=== PATIENT | male | born 1950 ===

== ENCOUNTER → 2021-11-29 10:47 | Outpatient (BNVA) | payer MEDICARE, SELFPAY | PROVIDERS: Referring Provider Family Medicine; Visit Provider Surgery | DX: Z12.11 Encounter for screening for malignant neoplasm of colon (principal) ==

== ENCOUNTER 2021-12-28 05:51 | Day surgery (SDC) | payer MEDICARE, SELFPAY ==
[2021-12-25 09:35] VITALS: BMI 22.0
[2021-12-28 06:10] VITALS: BP 139/98; PULSE 98; RESP 16; TEMP 36.1; O2SAT 94
[2021-12-28] MEDS: sodium chloride 0.9% 1,000 ML 30 ML IV (06:19)
--- NOTE | 2021-12-28 06:57 | ANES.PREANE2 ---
Pre-Anesthetic Assessment Height/Weight: Height 1.73 m Weight 65.771 kg Temp Pulse Resp BP Pulse Ox 97 F L 98 16 139/98 94 12/28/21 06:10 12/28/21 06:10 12/28/21 06:10 12/28/21 06:10 12/28/21 06:10 Preop Diagnosis: NEED FOR COLON SCREENING Operation Date: 12/28/21 07:00 Proposed Procedures p Colonoscopy 47053/Z12.11(Not Applicable) - Junaid Richardson DO Familial anesthetic complications: none Was Beta Halley taken within 24 hours: N/A Was Clonidine taken within 24 hours: N/A Last intake: Intake Last Liquid Date 08/03/88 Last Solid Date 12/26/21 Last Solid Time 20:00 Last Intake: 20:00 Social No alcohol and No tobacco Exam alert, oriented x 3, clear to auscultation bilaterally and regular rate & rhythm Airway Submandibular: within normal limits Cervical ROM: within normal limits Mallampati: Class I Dentition: full Pulmonary None reported CV/HEM None reported None reported Hepatic None reported GI None reported Metabolic None reported Musc/skel None reported Neuropsych None reported Anesthetic Plan ASA status: 1 Medications/Allergies Home Medications Medication Instructions Recorded Confirmed Last Taken Type No Known Home Medications 12/25/21 12/25/21 Unknown History Allergies Allergy/AdvReac Type Severity Reaction Status Date / Time codeine Allergy Unknown unkown Verified 12/25/21 09:32 Current Medications Generic Name Dose Route Start Last Admin Trade Name Freq PRN Reason Stop Dose Admin Sodium Chloride 1,000 mls @ 30 mls/hr 12/28/21 06:00 12/28/21 06:19 Sodium Chloride 0.9% IV 12/29/21 05:59 30 mls/hr .Q24H JHON Administration Data Anesthesia Cardiac Studies: No Data to Display
--- NOTE | 2021-12-28 07:01 | P.HP_ITS ---
Providers/Chief Complaint Primary Care Provider: Nicholas Cohn History of Present Illness Erasmo Maxwell is a 71 year old male here for his first screening colonoscopy. No complaints. Review of Systems General: Reports: 10 or more systems reviewed and unremarkable except in HPI and below Medications/Allergies Home Medications Medication Instructions Recorded Confirmed Last Taken Type No Known Home Medications 12/25/21 12/25/21 Unknown History Allergies Allergy/AdvReac Type Severity Reaction Status Date / Time codeine Allergy Unknown unkown Verified 12/25/21 09:32 Vitals/I&O/Wt Last Vital Signs Temp 97 F L 12/28/21 06:10 Pulse 98 12/28/21 06:10 Resp 16 12/28/21 06:10 BP 139/98 12/28/21 06:10 Pulse Ox 94 12/28/21 06:10 Physical Exam Narrative: General : Patient is well developed , no acute distress, oriented x3 Head : Normal cephalic, a-traumatic. Ears : Pinnae and external canal are normal. Hearing is normal. Eyes : PERRLA, Sclera and injection are normal. No conjunctival discharge. Nose : Mucous membranes are without erythema. Throat : buccal mucosa is normal, gums are without significant recession or hypertrophy. Lungs : Equal chest rise bilaterally, no use of accessory muscles, trachea is midline. Cor : Rate and rhythm are normal. Abdomen : Soft, ND, NT, no g/r/m Extremities : No edema, no cyanosis or clubbing, dorsalis pedis pulses are present bilaterally, non-tender to palpation of calves. Upper extremities are normal bilaterally. Back : non-tender to palpation, no CVA tenderness. Neuro : CN II - XII intact, Upper and lower extremities have equal and full strength A&P Assessment and plan (1) Colon cancer screening: Status: Acute Plan Colonoscopy The risks and benefits of the procedure, including bleeding, infection, intestinal perforation requiring surgery, missed lesion, or explained to the patient. He is understanding of the risks and wishes to proceed. Attestations Medical Necessity Statement*: Not staying Coding Level of Care Code Acute Inventory Assistant for [facility] Diagnoses Colon cancer screening Z12.11
[2021-12-28 07:23] VITALS: BP 112/78; PULSE 78; RESP 16; TEMP 36.6; O2SAT 96
[2021-12-28 07:35] VITALS: BP 107/87; PULSE 74; RESP 18; O2SAT 98
--- NOTE | 2021-12-28 16:23 | ANE.PACU2 ---
Inpatient post-anesthesia follow up: Airway intact: Yes Vital signs: Temperature 97.9 F Pulse Rate 74 Respiratory Rate 18 Blood Pressure 107/87 Pulse Oximetry 98 Oxygen Delivery Me thod Room Air Oxygen Flow Rate Fraction of Inspir ed Oxygen Hydration adequate: Yes Nausea and vomiting: No Pain level: 1 Mental status: Baseline
== END 2021-12-28 07:45 | disposition home or self-care (01) ==
PROVIDERS: PCP Family Medicine; Visit Provider Surgery
PROC: 0DJD8ZZ Inspection of Lower Intestinal Tract, Via Natural or Artificial Opening Endoscopic (ICD-10-PCS; CPT 45378; principal; 2021-12-28 07:00)
DX: Z12.11 Encounter for screening for malignant neoplasm of colon (principal)
CPT/HCPCS: G0121; J2704; J7030

== ENCOUNTER 2022-10-01 08:43 | Outpatient (CLI) | payer MEDICARE, SELFPAY ==
--- NOTE | 2022-10-01 09:04 | MM_ITS ---
WS: [id number] DIAGNOSTIC BILATERAL DIGITAL BREAST TOMOSYNTHESIS MAMMOGRAPHY WITH CAD LEFT breast ultrasound, limited HISTORY: LEFT MASS UPPER INNER QUADRANT, male patient. COMPARISON: None available. TECHNIQUE: Bilateral craniocaudad, mediolateral oblique, and mediolateral views are submitted with to mosynthesis and SM. LEFT spot CC. Computer aided detection utilized. Breast composition: The breasts are almost entirely fatty. Increased density and soft tissue posterio r to the LEFT nipple. Typical location and appearance for gynecomastia. Normal RIGHT breast. Ultrasou nd to follow. LEFT breast ultrasound, limited. Increased soft tissue posterior to the LEFT nipple corresponds to the mammographic finding consistent with mild gynecomastia. There is no increased vascularity. MM/[place] [id number] IMPRESSION: BI-RADS: 2-Benign FOLLOW UP: See Report Very mild LEFT breast gynecomastia.
== END 2022-10-01 08:44 | disposition home or self-care (01) ==
PROVIDERS: PCP Family Medicine; Visit Provider Family Medicine
DX: N63.22 Unspecified lump in the left breast, upper inner quadrant (principal); N62 Hypertrophy of breast
CPT/HCPCS: 76642; 77062; G0279

== ENCOUNTER → 2023-09-10 08:16 | Outpatient (BNVA) | payer SELFPAY | PROVIDERS: PCP Dermatology; Visit Provider Dermatology | DX: Z13.6 Encounter for screening for cardiovascular disorders (principal) | CPT/HCPCS: 80061; 82947; 83036 ==

== ENCOUNTER 2024-03-21 06:00 | Outpatient (RCR) | payer MEDICARE, SELFPAY | END 2024-04-19 23:59 | disposition home or self-care (01) | LOC: WPT 06:00 | PROVIDERS: Visit Provider Family Medicine | DX: M25.511 Pain in right shoulder (principal); G89.29 Other chronic pain | CPT/HCPCS: 97110; 97112; 97162; 97530 ==

== ENCOUNTER 2024-04-20 06:00 | Outpatient (RCR) | payer MEDICARE, SELFPAY | END 2024-05-20 23:59 | disposition home or self-care (01) | LOC: WPT 06:00 | PROVIDERS: Visit Provider Family Medicine | DX: M25.511 Pain in right shoulder (principal); G89.29 Other chronic pain | CPT/HCPCS: 97110; 97530 ==

== ENCOUNTER → 2024-12-08 10:24 | Outpatient (BNVA) | payer MEDICARE, SELFPAY | PROVIDERS: Visit Provider Nurse Practitioner Family | DX: L82.1 Other seborrheic keratosis (principal); D18.01 Hemangioma of skin and subcutaneous tissue; L60.3 Nail dystrophy; L84 Corns and callosities; Z80.8 Family history of malignant neoplasm of other organs or systems; Z12.83 Encounter for screening for malignant neoplasm of skin; L57.0 Actinic keratosis; X32.XXXA Exposure to sunlight, initial encounter | CPT/HCPCS: 17000; 99203 ==

== ENCOUNTER → 2025-06-13 11:09 | Outpatient (BNVA) | payer MEDICARE, SELFPAY | PROVIDERS: Visit Provider Nurse Practitioner Family | DX: L60.3 Nail dystrophy (principal); D69.2 Other nonthrombocytopenic purpura; L82.1 Other seborrheic keratosis; D18.01 Hemangioma of skin and subcutaneous tissue; Z80.8 Family history of malignant neoplasm of other organs or systems; L82.0 Inflamed seborrheic keratosis; L53.8 Other specified erythematous conditions; R20.8 Other disturbances of skin sensation; L29.89 Other pruritus; L57.0 Actinic keratosis | CPT/HCPCS: 17000; 17110; 99213 ==